=== PATIENT | male | born 1980 | race Caucasian/White ===

== ENCOUNTER 2024-12-16 19:05 | Emergency (ER) | payer SELFPAY ==
[~2024-12-16] VITALS: Ht 175.3 cm; Wt 68.0 kg
[2024-12-16] MEDS: FAMOTIDINE 20 MG/2 ML VIAL IV ONE (21:22)
[2024-12-16] MEDS: ONDANSETRON HCL INJ 2MG/ML 2ML 2 MG/ML VIAL IV ONE (21:22)
[2024-12-16] MEDS: SODIUM CHLORIDE 0.9% 1000ML 1,000 ML IV STA (21:23)
[2024-12-16] MEDS ORDERED: OMEPRAZOLE40 MG PO (22:26)
[2024-12-16] MEDS ORDERED: FOLIC ACID-VIT1 EACH PO (22:26)
[2024-12-16 22:54] VITALS: PULSE 90; RESP 18; TEMP 98.3
[2024-12-16 22:58] VITALS: BP 120/80; PULSE 90; RESP 16; TEMP 98.3; O2SAT 98
== END 2024-12-16 22:55 | disposition home or self-care (01) ==
LOC: FSED 19:11
DX: R00.2 Palpitations (principal); F10.10 Alcohol abuse, uncomplicated; K70.10 Alcoholic hepatitis without ascites; K29.20 Alcoholic gastritis without bleeding; R10.13 Epigastric pain; E46 Unspecified protein-calorie malnutrition; I10 Essential (primary) hypertension; E78.5 Hyperlipidemia, unspecified; F41.9 Anxiety disorder, unspecified
CPT/HCPCS: 71046; 80053; 82553; 83880; 84484; 85025; 93005; 96374; 96375; 99284; J2405; J7030